=== PATIENT | male | born 1995 | race Caucasian/White ===

== ENCOUNTER 2017-01-26 01:32 | Emergency (ER) | payer BC ==
[~2017-01-26] VITALS: Ht 180.3 cm; Wt 77.9 kg
[2017-01-26 01:38] VITALS: TEMP 36.5; Ht 180.3 cm; Wt 77.9 kg
--- NOTE | 2017-01-26 01:54 | EMERGENCY ROOM VISIT NOTE ---
History Report prepared by Fernandez: Hamilton Mercedes Under the Supervision of: Dr. Vannessa Jordan D.O. First contact with patient: 01:36 Chief Complaint: FALL Stated Complaint: FALL History of Present Illness The patient is a 21 year old male who presents to the Emergency Room via EMS with complaints of a fall that occurred [employer]. This HPI and ROS are limited secondary to intoxication. According to EMS, the patient was drinking alcohol this evening when he fell down half a flight of stairs and hit his head on a metal edge. The patient experienced a loss of consciousness. He currently denies any pain anywhere. Source of History: patient History Limited By: intoxication Onset: TRADES HELPER Position: head Quality: other (Fall) Timing: constant Note: He denies any pain. Review of Systems Limited secondary to intoxication. 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 Social History Smoking Status: Never Smoker Smokeless Tobacco Use: No Alcohol Use: occasionally Marital Status: single Occupation Status: [employer] student Current/Historical Medications Unable to Obtain Active Prescriptions or Reported Meds Allergies Coded Allergies: No Known Allergies (Unverified , 01/26/17) Physical Exam Vital Signs Date Time Temp Pulse Resp B/P Pulse Ox O2 Delivery O2 Flow Rate FiO2 01/26/17 06:00 66 19 105/52 96 01/26/17 05:52 71 01/26/17 05:30 61 20 112/43 01/26/17 05:00 58 19 130/45 97 01/26/17 04:58 118/49 01/26/17 04:30 64 19 96 01/26/17 04:02 63 20 109/53 95 Room Air 01/26/17 03:32 57 20 79/51 93 Room Air 01/26/17 02:28 63 20 114/53 94 Room Air 01/26/17 02:06 56 14 126/56 92 Room Air 01/26/17 02:00 72 01/26/17 01:38 36.5 64 22 140/61 92 Room Air Physical Exam General: Smells of alcohol and is confused. HEENT: Head - normocephalic. There is a left parietoccipital hematoma present. Pupils are 3 mm's and sluggish, though they are reactive to light. Extraocular eye muscles are intact and sclera are anicteric. Ears - bilaterally patent canals with no evidence of hemotympanum. Nose - moist nasal mucosa without evidence of trauma or discharge. Mouth - moist buccal mucosa with no trauma to the teeth or signs of malocclusion. Neck: The cervical collar was temporarily removed while in-line stabilization was maintained. The neck is supple and there is no pain to palpation over the posterior cervical spine and no obvious step-offs or deformities. There is no JVD or tracheal deviation. Chest: There are no signs of deformities, contusions or abrasions to the chest wall. There is no obvious crepitus or paradoxical chest rise. Heart: Regular, rate, and rhythm. There is a normal S1 and S2 with no clicks, or gallops appreciated. There is a 4/6 blowing systolic ejection murmur. Lungs: Clear to auscultation bilaterally with no wheezes, rales, or rhonchi. Abdomen: Soft, completely nontender, nondistended, with good bowel sounds. There is no sign of trauma such as contusions, abrasions or penetrations. There are no palpable pulsatile masses or hepatosplenomegaly. There is no guarding, rigidity, or rebound noted. Pelvis: Stable to rock and compression. Extremities: No obvious trauma, deformities, contusions, or edema. There are easily palpable peripheral pulses. Neuro: The patient is awake and alert and easily able to follow commands. Muscle strength is 5 out of 5 in all 4 extremities. Otherwise, neuro exam is unremarkable. Back: The entire thoracic, lumbar, and sacral spine were palpated. There are no obvious step-offs or deformities noted. There are no obvious signs of trauma such as contusions abrasions penetrations noted to the back. Medical Decision & Procedures ER Provider Diagnostic Interpretation: Radiology results as stated below per my review and the radiologist's interpretation: CT HEAD: Left scalp soft tissue swelling. No ICH, mass effect or edema. No skull fracture. CT C SPINE: No evidence of fracture or malalignment. Radiologist: German Chowdary M.D. Laboratory Results 01/26/17 01:45 01/26/17 01:45 Test 01/26/17 01:45 Red Blood Count 5.02 M/uL (4.7-6.1) Mean Corpuscular Volume 80.7 fL (80-100) Mean Corpuscular Hemoglobin 28.3 pg (25-34) Mean Corpuscular Hemoglobin Concent 35.1 g/dl (32-36) RDW Standard Deviation 41.2 fL (36.4-46.3) RDW Coefficient of Variation 14.0 % (11.5-14.5) Mean Platelet Volume 10.6 fL (7.4-10.4) Anion Gap 11.0 mmol/L (3-11) Est Creatinine Clear Calc Drug Dose 125.4 ml/min Estimated GFR () 125.0 Estimated GFR (Non- 107.9 BUN/Creatinine Ratio 14.8 (10-20) Calcium Level 8.3 mg/dl (8.5-10.1) Ethyl Alcohol mg/dL 306.0 mg/dl (0-3) Laboratory results per my review. ED Course 0136: Past medical records reviewed. The patient was evaluated in room B1. A complete history and physical exam was performed. Labs are drawn as above. The patient will go for CT scan of the brain, cervical spine, and facial bones. 0148: At this time, I received permission from the patient to talk to his father over the phone. I spoke with him about the patient's heart murmur. As an , he had a surgery for a transposition of the great vessels. 0222: The patient has returned from CT scan and is hemodynamically stable. 0243: I called his father back at this time and told him the results of his CT scan. He is on his way to the hospital. 0246: I spoke with his friends at bedside, and updated them. 0345: The patient is sound asleep and hemodynamically stable. 0434: The patient is sound asleep and snoring. He is hemodynamically stable at this time. The cervical collar remains in place. 0500: The patient opens his eyes to verbal stimuli. He remains hemodynamically stable. 0603: I was informed that the patient's parents have arrived. 0607: I spoke with the patient's parents at this time. The patient is still very sleepy. He will be ready for discharge with his parents at 0800. 0700: Upon reevaluation, he is resting. He will be discharged home with his parents when he is more awake Medical Decision The patient is a 21 year old male who presents to the ED with a fall. Differential diagnosis includes skull fracture, intracranial trauma, concussion , alcohol overdose, hypoglycemia, and drug intoxication. Laboratory Results: Alcohol of 306, white blood cell count of 11.9, stable H&H, glucose of 104, and normal renal function. Impression Primary Impression: Alcohol overdose Additional Impressions: Closed head injury Fall Scribe Attestation The scribe's documentation has been prepared under my direction and personally reviewed by me in its entirety. I confirm that the note above accurately reflects all work, treatment, procedures, and medical decision making performed by me. Departure Information Dispostion Home / Self-Care Prescriptions Unable to Obtain Active Prescriptions or Reported Meds Forms HOME CARE DOCUMENTATION FORM, IMPORTANT VISIT INFORMATION Patient Instructions ED Overdose Alcohol, [facility]: [employer] Students and Alcohol Related Visits, My [facility] Additional Instructions Avoid such excessive alcohol use in the future rest. Take plenty of clear liquids Use tylenol for headaches If you have any concussive symptoms, follow up at student health services Problem Qualifiers
[2017-01-26 02:02] LABS: HEMATOCRIT 40.5 % (42-52); MEAN CELL VOLUME 80.7 fL (80-100); MEAN CORPUSCULAR HEMOGLOBIN 28.3 pg (25-34); MEAN CORPUSCULAR HGB CONC 35.1 g/dl (32-36); MEAN PLATELET VOLUME 10.6 fL (7.4-10.4); PLATELET COUNT 209 K/uL (130-400); RED BLOOD COUNT 5.02 M/uL (4.7-6.1); WHITE BLOOD COUNT 11.97 K/uL (4.8-10.8)
[2017-01-26 02:22] LABS: BUN/CREATININE RATIO 14.8 (10-20); CALCIUM 8.3 mg/dl (8.5-10.1); POTASSIUM 3.5 mmol/L (3.5-5.1)
--- NOTE | 2017-01-26 08:17 | DIAGNOSTIC IMAGING REPORT ---
CT OF THE HEAD WITHOUT CONTRAST CLINICAL HISTORY: Fall. COMPARISON STUDY: No previous studies for comparison. TECHNIQUE: Helical axial images of the head were obtained without IV contrast. Automated exposure control was utilized for the study. FINDINGS: No acute intracranial hemorrhage, midline shift or mass effect is present. Ventricular system is normal. Basilar cisterns are patent. There are no extra-axial collections. Andrade-white differentiation is maintained. There is a left posterior scalp contusion. There is no calvarial fracture. There is mild polypoid mucosal thickening of the maxillary sinuses. IMPRESSION: 1. No acute intracranial findings. 2. Left posterior scalp contusion. No calvarial fracture. Electronically signed by: Quan Pearl M.D. 01/26/2017 8:16 AM Dictated Date/Time: 01/26/2017 8:08 AM
--- NOTE | 2017-01-26 08:18 | DIAGNOSTIC IMAGING REPORT ---
CT OF THE CERVICAL SPINE WITHOUT CONTRAST CLINICAL HISTORY: Fall down stairs. COMPARISON STUDY: No previous studies for comparison. TECHNIQUE: Helical axial images of the cervical spine were obtained without IV contrast. Sagittal and coronal reconstructions were viewed. FINDINGS: Alignment of the cervical spine is anatomic. Craniocervical junction is intact. There is no acute fracture. There is no prevertebral edema. Disc spaces are preserved. Facet joints are intact. IMPRESSION: No acute cervical spine fracture or subluxation. Electronically signed by: Quan Pearl M.D. 01/26/2017 8:17 AM Dictated Date/Time: 01/26/2017 8:16 AM
[2017-01-26 08:45] VITALS: BP 118/62; PULSE 97; O2SAT 99
== END 2017-01-26 08:45 | disposition home or self-care (01) ==
LOC: C.EDB 01:34
DX: S06.9X9A Unspecified intracranial injury with loss of consciousness of unspecified duration, initial encounter (principal); T51.91XA Toxic effect of unspecified alcohol, accidental (unintentional), initial encounter; W10.8XXA Fall (on) (from) other stairs and steps, initial encounter; Y92.89 Other specified places as the place of occurrence of the external cause